=== PATIENT | male | born 1990 | race Caucasian/White ===

== ENCOUNTER → 2017-11-12 | Outpatient (CLI) | payer OTHER ==
[~2017-11-12] MED LIST: NO HOME MEDICATIONS; NORCO 325 MG-51 TAB PO; NORCO 325 MG-7.1 TAB PO; PERCOCET 325 MG1 TA2 PO; ROXICODONE 55 MG/TAB PO; TORADOL 10MG TA10 MG PO; ZOFRAN 4MG T4 MG/TAB PO
== END ==
LOC: MHCPAIN 08:20
DX: G89.29 Other chronic pain (principal); M79.2 Neuralgia and neuritis, unspecified; M79.1 Myalgia
CPT/HCPCS: G0463

== ENCOUNTER → 2017-11-20 | Outpatient (CLI) | payer OTHER | LOC: MHCPAIN 13:04 | DX: M79.1 Myalgia (principal); M25.571 Pain in right ankle and joints of right foot | CPT/HCPCS: J1040; Q9967 ==

== ENCOUNTER → 2017-12-23 | Outpatient (CLI) | payer OTHER | LOC: MHCPAIN 14:47 | DX: G89.29 Other chronic pain (principal); M79.1 Myalgia; M79.2 Neuralgia and neuritis, unspecified | CPT/HCPCS: G0463 ==